=== PATIENT | female | born 1975 | race Caucasian/White ===

== ENCOUNTER 2021-04-28 10:17 | Emergency (ER) | payer SELFPAY ==
[~2021-04-28] VITALS: Ht 157.5 cm; Wt 53.1 kg
--- NOTE | 2021-04-28 10:35 | NUR ---
ER BED 1, C/O TOOTH ACHE, ATTACHED TO MONITOR AND POX, AWAITING MD LOYD
[2021-04-28] MEDS ORDERED: IBUP-1957 PO (10:42)
[2021-04-28] MEDS ORDERED: IBUPROFEN 600 MG TABLET ONE (10:42)
[2021-04-28] MEDS ORDERED: HYDROCODONE/APAP 5/325MG TABLET ONE (10:42)
[2021-04-28] MEDS ORDERED: HYDR-3972 PO (10:42)
[2021-04-28 10:54] VITALS: BP 145/90
[2021-04-28] MEDS ORDERED: HYDROCODONE/APAP 5/325MG TABLET PO ONE (11:00)
[2021-04-28] MEDS ORDERED: IBUPROFEN 600 MG TABLET PO ONE (11:00)
== END 2021-04-28 10:55 | disposition home or self-care (01) ==
LOC: ER 10:23
DX: K02.9 Dental caries, unspecified (principal)